=== PATIENT | female | born 1955 | race Caucasian/White ===

== ENCOUNTER 2022-01-22 10:52 | Emergency (ER) | payer MEDICARE, OTHER ==
[2022-01-22] MEDS ORDERED: Metoclopramide 10 MG/2 ML SDV IVPUSH ONE (11:33)
[2022-01-22] MEDS ORDERED: HYDROmorphone 0.5 MG/0.5 ML Syringe IVPUSH ONE (11:33)
[2022-01-22] MEDS ORDERED: Dextrose 5%-0.9% NaCl 1,000 ML IV SCH (11:45)
[2022-01-22] MEDS ORDERED: Sodium Chloride 0.9% 10 ML Syringe FLUSH PRN (11:49)
[2022-01-22] MEDS ORDERED: Iopamidol 612 MG/ML 100 ML Bottle IVPUSH ONE (11:49)
== END 2022-01-22 14:48 | disposition home or self-care (01) ==
LOC: JD.ED 10:52
DX: S22.31XA Fracture of one rib, right side, initial encounter for closed fracture (principal); S32.018A Other fracture of first lumbar vertebra, initial encounter for closed fracture; V80.010A Animal-rider injured by fall from or being thrown from horse in noncollision accident, initial encounter; Y93.52 Activity, horseback riding
CPT/HCPCS: 36415; 71260; 72128; 74177; 80053; 81001; 83690; 85025; 86850; 86900; 86901; 96361; 96374; 96375; 99284; J1170; J2765; J3490; J7042; Q9967